=== PATIENT | female | born 1935 | race Caucasian/White ===

== ENCOUNTER 2016-12-04 01:31 | Emergency (ER) | payer OTHER ==
[~2016-12-04] VITALS: Ht 160 cm; Wt 73.9 kg
[2016-12-04] MEDS ORDERED: NALBUPHINE HCL 10 MG/1ml INJECTION IV ONE (02:00)
[2016-12-04] MEDS ORDERED: ALPRAZolam 0.5 MG TAB PO ONE (04:00)
[2016-12-04 06:03] LABS: Basophils # (auto) 0.1 uL; Basophils % (auto) 0.4 % (0.0-2.0); Eosinophils # (auto) 0.2 uL; Eosinophils % (auto) 1.8 % (0.0-7.0); Hematocrit 48.6 % (36.0-46.0); Hemoglobin 16.2 g/dL (12.2-16.2); Lymphocytes # (auto) 2.5 uL; Lymphocytes % (auto) 21.1 % (10.0-50.0); Mean Corpuscular Hemoglobin 30.9 pg (28.0-32.0); Mean Corpuscular Hgb Conc. 33.4 g/dL (32.0-36.0); Mean Corpuscular Volume 92.5 fL (80.0-100.0); Mean Platelet Volume 10.9 fL (7.4-10.4); Monocytes % (auto) 8.6 % (0.0-12.0); Neutrophils # (auto) 8.2 uL; Neutrophils % (auto) 68.1 % (37.0-80.0); Platelet Count (auto) 200 10^3/uL (140-450); Red Cell Distribution Width 14.3 % (11.6-16.0); SUSPECT VIEW TRANSMISSION
[2016-12-04 06:20] LABS: INR 1.02 (0.9-1.15); Partial Thromboplastin Time 26.4 sec (22.64-33.71)
[2016-12-04 06:23] LABS: Albumin 3.2 g/dL (3.4-5.0); BUN/Creatinine Ratio 10.3; Calcium 8.5 mg/dL (8.5-10.1); Potassium 3.2 mmol/L (3.5-5.1)
[2016-12-04 06:26] LABS: Bilirubin, Total 0.6 mg/dL (0.2-1.0); Total Protein 6.6 g/dL (6.4-8.2)
[2016-12-04 07:20] VITALS: BP 178/90
[2016-12-04 07:53] LABS: Urine Bilirubin Negative (Negative); Urine Blood Negative /uL (Negative); Urine Color Yellow (Yellow); Urine Glucose Normal (Normal); Urine Ketone Negative (Negative); Urine Nitrite Negative (Negative); Urine RBC <1 /hpf (0 - 4); Urine Squamous Epithelial Cell FEW /hpf (<5); Urine Urobilinogen Normal (Negative)
== END 2016-12-04 07:27 | disposition short-term general hospital (02) ==
LOC: EDBD 01:31 → ER 01:38
DX: S12.100A Unspecified displaced fracture of second cervical vertebra, initial encounter for closed fracture (principal); M19.90 Unspecified osteoarthritis, unspecified site; E11.9 Type 2 diabetes mellitus without complications; I10 Essential (primary) hypertension; G89.4 Chronic pain syndrome; Z88.0 Allergy status to penicillin; Z85.3 Personal history of malignant neoplasm of breast; W19.XXXA Unspecified fall, initial encounter; Y93.89 Activity, other specified; Y99.8 Other external cause status; Y92.099 Unspecified place in other non-institutional residence as the place of occurrence of the external cause
CPT/HCPCS: 36415; 51702; 70450; 72125; 72170; 73030; 80053; 81001; 85025; 85610; 85730; 94761; 96374; 99285; J2300

== ENCOUNTER 2019-12-29 07:46 | Emergency (ER) | payer OTHER ==
[~2019-12-29] VITALS: Ht 167.6 cm; Wt 77.1 kg
[2019-12-29 09:09] LABS: Basophils # (auto) 0.1 10 ^3/uL (0-0.2); Basophils % (auto) 1.1 % (0.0-2.0); Eosinophils # (auto) 0.3 10 ^3/uL (0-0.8); Eosinophils % (auto) 2.2 % (0.0-7.0); Hematocrit 39.6 % (36.0-46.0); Hemoglobin 12.7 g/dL (12.2-16.2); Lymphocytes # (auto) 2.3 10 ^3/uL (0.4-5.4); Lymphocytes % (auto) 17.2 % (10.0-50.0); Mean Corpuscular Hemoglobin 30.7 pg (28.0-32.0); Mean Corpuscular Hgb Conc. 32.1 g/dL (32.0-36.0); Mean Corpuscular Volume 95.7 fL (80.0-100.0); Monocytes # (auto) 1.1 10 ^3/uL (0-1.3); Monocytes % (auto) 8.7 % (0.0-12.0); Neutrophils # (auto) 9.4 10 ^3/uL (1.6-8.6); Neutrophils % (auto) 70.8 % (37.0-80.0); Platelet Count (auto) 259 10^3/uL (140-450); Red Blood Cells 4.14 10^6/uL (4.0-5.20); Red Cell Distribution Width 14.6 % (11.8-14.3); White Blood Cell 13.2 10^3/uL (4.4-10.8)
[2019-12-29 09:15] LABS: Urine Amorphous Crystal FEW /hpf (None Seen); Urine Bacteria NONE SEEN /hpf (None Seen); Urine Blood Negative /uL (Negative); Urine Specific Gravity 1.021 (1.001-1.035); Urine WBC 12 /hpf (0 - 5)
[2019-12-29 09:17] LABS: INR 0.96 (0.9-1.15); Partial Thromboplastin Time 24.3 sec (23.64-32.05)
[2019-12-29 09:40] LABS: Albumin 2.2 g/dL (3.4-5.0); Anion Gap 3 (5-15); Blood Urea Nitrogen 35 mg/dL (7-18); Calcium 8.5 mg/dL (8.5-10.1); Carbon Dioxide 30 mmol/L (21-32); Chloride 106 mmol/L (98-107); Glucose 105 mg/dL (74-106); Potassium 4.4 mmol/L (3.5-5.1); Sodium 139 mmol/L (136-145)
[2019-12-29 09:46] LABS: Alanine Aminotransferase 13 U/L (13-56); Alkaline Phosphatase 62 U/L (45-117); Aspartate Aminotransferase 19 U/L (15-37); BUN/Creatinine Ratio 67.3; Bilirubin, Total 0.5 mg/dL (0.2-1.0); GFR African American 145 mL/min; GFR Non-African American 120 mL/min; Total Protein 5.9 g/dL (6.4-8.2)
[2019-12-29 12:00] VITALS: BP 112/78
== END 2019-12-29 12:16 | disposition home or self-care (01) ==
LOC: ER 07:46 → EDBD 07:46 → ER 12:16
DX: K52.9 Noninfective gastroenteritis and colitis, unspecified (principal); K59.00 Constipation, unspecified; E43 Unspecified severe protein-calorie malnutrition; E11.9 Type 2 diabetes mellitus without complications; R51 Headache; I10 Essential (primary) hypertension; Z68.27 Body mass index [BMI] 27.0-27.9, adult; Z88.0 Allergy status to penicillin
CPT/HCPCS: 36415; 70450; 71250; 74176; 80053; 81001; 83880; 84484; 85025; 85610; 85730; 93005

== ENCOUNTER 2020-03-11 12:18 | Inpatient (IN) | payer OTHER ==
[~2020-03-11] VITALS: Ht 172.7 cm; Wt 70.9 kg
[2020-03-11] MEDS ORDERED: SODIUM CHLORIDE 0.9% 1,000 ML IV ONE (12:27)
[2020-03-11 13:18] LABS: Basophils # (auto) 0.1 10 ^3/uL (0-0.2); Basophils % (auto) 0.8 % (0.0-2.0); Eosinophils # (auto) 0.2 10 ^3/uL (0-0.8); Eosinophils % (auto) 2.3 % (0.0-7.0); Hematocrit 43.2 % (36.0-46.0); Hemoglobin 13.8 g/dL (12.2-16.2); Lymphocytes % (auto) 32.7 % (10.0-50.0); Mean Corpuscular Hemoglobin 29.7 pg (28.0-32.0); Mean Corpuscular Hgb Conc. 32.1 g/dL (32.0-36.0); Mean Corpuscular Volume 92.7 fL (80.0-100.0); Monocytes # (auto) 0.8 10 ^3/uL (0-1.3); Monocytes % (auto) 8.3 % (0.0-12.0); Neutrophils # (auto) 5.1 10 ^3/uL (1.6-8.6); Neutrophils % (auto) 55.9 % (37.0-80.0); Platelet Count (auto) 249 10^3/uL (140-450); Red Blood Cells 4.66 10^6/uL (4.0-5.20); Red Cell Distribution Width 16.2 % (11.8-14.3); White Blood Cell 9.1 10^3/uL (4.4-10.8)
[2020-03-11 13:33] LABS: Albumin 2.4 g/dL (3.4-5.0); Anion Gap 6 (5-15); Carbon Dioxide 27 mmol/L (21-32); Chloride 107 mmol/L (98-107); Glucose 89 mg/dL (74-106); Potassium 3.9 mmol/L (3.5-5.1); Sodium 140 mmol/L (136-145)
[2020-03-11 13:40] LABS: Alanine Aminotransferase 9 U/L (13-56); Alkaline Phosphatase 64 U/L (45-117); Aspartate Aminotransferase 14 U/L (15-37); Bilirubin, Total 0.5 mg/dL (0.2-1.0); Total Protein 6.2 g/dL (6.4-8.2)
[2020-03-11 13:41] LABS: CRP High Sensitivity 0.281 mg/dL (< 0.3)
[2020-03-11 13:51] LABS: Urine Amorphous Crystal FEW /hpf (None Seen); Urine Bacteria FEW /hpf (None Seen); Urine Blood Negative /uL (Negative); Urine Hyaline Cast FEW /lpf (0 - 2); Urine Specific Gravity 1.013 (1.001-1.035); Urine WBC 44 /hpf (0 - 5)
[2020-03-11] MEDS ORDERED: cefTRIAXone 1GM/50ML D5W 50 ML IV ONE (14:00)
[2020-03-11 14:32] LABS: INR 0.97 (0.9-1.15)
[2020-03-11 14:50] LABS: BUN/Creatinine Ratio 22.4; Blood Urea Nitrogen 11 mg/dL (7-18); GFR African American 155 mL/min; GFR Non-African American 128 mL/min
[2020-03-11] MEDS ORDERED: FUROSEMIDE 20 MG/2 ML VIAL IV ONE (16:30)
[2020-03-11] MEDS ORDERED: MORPHINE SULF INJ 2 MG/ML SYRINGE 1ML IV PRN (16:45)
[2020-03-11] MEDS ORDERED: PANTOPRAZOLE 40 MG/10 ML VIAL INJ IV ONE (16:45)
[2020-03-11] MEDS ORDERED: ACETAMINOPHEN 500 MG TAB PO PRN ×2 (16:45)
[2020-03-11] MEDS ORDERED: NITROGLYCERIN 0.4 MG SL TAB SL PRN (16:45)
[2020-03-11] MEDS ORDERED: LACTULOSE 20Gm/30ML SOLN PO PRN (16:45)
[2020-03-11] MEDS ORDERED: ONDANSETRON HCL 4 MG/2 ML VIAL IV PRN (16:45)
[2020-03-11] MEDS: levoFLOXacin 500MG 100 ML IV SCH (17:27)
[2020-03-11 18:01] LABS: Amylase 11 U/L (25-115); Lipase 34 U/L (73-393)
[2020-03-11 20:12] LABS: Hematocrit 42.1 % (36.0-46.0); Hemoglobin 13.5 g/dL (12.2-16.2)
[2020-03-11] MEDS ORDERED: PANTOPRAZOLE 40 MG TAB PO SCH (22:00)
[2020-03-11] MEDS ORDERED: BUDESONIDE (INHALATION) 180 MCG IH IN SCH (22:00)
[2020-03-11] MEDS ORDERED: ALBUTEROL SULF HFA 90MCG INH 200DOSE IN SCH (22:00)
--- NOTE | 2020-03-12 00:15 | NUR ---
MS admit from ER ASHWINI HARRINGTON admitted to tele/MS. Patient oriented to Dea Garza, RN, primary RN, room 274, bed A. Patient weighed by bedscale and encouraged to call if they need something. All questions and concerns addressed, patient verbalized understanding. Bed locked, in lowest position, call light within reach, side rails up x2. Will continue to monitor Q1hr and PRN
[2020-03-12] MEDS: CARVEDILOL 3.125 MG TAB PO SCH ×3 (00:49→21:44)
--- NOTE | 2020-03-12 00:52 | NUR ---
Hospitalist paged Pt unable to swallow meds.
--- NOTE | 2020-03-12 01:20 | NUR ---
Call back from hospitalist New orders received.
[2020-03-12 01:26] LABS: Hematocrit 41.4 % (36.0-46.0); Hemoglobin 13.4 g/dL (12.2-16.2)
[2020-03-12] MEDS ORDERED: DEXTROSE (50%) 50ML SYRG IV PRN (01:30)
[2020-03-12 05:00] VITALS: BP 119/68
--- NOTE | 2020-03-12 05:54 | NUR ---
Wound photo taken Abrasion to right elbow. Wound consult made
[2020-03-12] MEDS: ACCU-CHEK COMFORT CURVE STRIP VI SCH ×4 (06:15→21:44)
[2020-03-12] MEDS: InsuLIN REG 1unit/0.01ml Soln (100units/ml) SC SCH ×4 (06:15→21:44)
[2020-03-12 06:39] LABS: Basophils # (auto) 0.1 10 ^3/uL (0-0.2); Basophils % (auto) 0.7 % (0.0-2.0); Eosinophils # (auto) 0.2 10 ^3/uL (0-0.8); Eosinophils % (auto) 1.9 % (0.0-7.0); Hematocrit 40.2 % (36.0-46.0); Hemoglobin 13.3 g/dL (12.2-16.2); Lymphocytes % (auto) 21.8 % (10.0-50.0); Mean Corpuscular Hemoglobin 30.5 pg (28.0-32.0); Mean Corpuscular Volume 92.3 fL (80.0-100.0); Monocytes % (auto) 11.4 % (0.0-12.0); Neutrophils # (auto) 5.8 10 ^3/uL (1.6-8.6); Neutrophils % (auto) 64.2 % (37.0-80.0); Platelet Count (auto) 217 10^3/uL (140-450); Red Blood Cells 4.36 10^6/uL (4.0-5.20); Red Cell Distribution Width 15.9 % (11.8-14.3); White Blood Cell 9.1 10^3/uL (4.4-10.8)
[2020-03-12 06:51] LABS: Calcium 8.7 mg/dL (8.5-10.1); Potassium 3.3 mmol/L (3.5-5.1)
[2020-03-12 06:57] LABS: Albumin 2.1 g/dL (3.4-5.0); BUN/Creatinine Ratio 24.4; Bilirubin, Total 0.6 mg/dL (0.2-1.0); Total Protein 5.6 g/dL (6.4-8.2)
[2020-03-12] MEDS ORDERED: ACCU-CHEK COMFORT CURVE STRIP VI SCH (07:00)
--- NOTE | 2020-03-12 08:00 | NUR ---
Morning note Patient resting in bed with eyes closed; respirations even and unlabored, no distress noted. Instructed patient on POC, fall precautions and to call for assistance as needed. Patient verbalized understanding. Fall precautions in place with call light within reach.
--- NOTE | 2020-03-12 08:00 | NUR ---
RE: Intervention Patient reports she is bedbound and unable to sit in a chair. Education provided. Patient verbalized understanding. Addendum: 03/12/20 at 1018 by Janneth Brown RN Amended: Links added.
[2020-03-12 09:00] VITALS: BP 132/74
[2020-03-12] MEDS ORDERED: POTASSIUM CHLORIDE 40 MEQ, LIDOCAINE 1% (LOCAL ANESTH.) 4 ML in SODIUM CHL 0.9% 100 ML IV ONE (09:30)
--- NOTE | 2020-03-12 09:30 | NUR ---
was at bedside - Dr. Syed
--- NOTE | 2020-03-12 09:40 | NUR ---
Telephone consent obtained from patient's son, Mamie. Witnessed by second RN.
[2020-03-12] MEDS ORDERED: ZINC SULFATE 220mg CAP or TAB PO SCH (10:00)
[2020-03-12] MEDS ORDERED: ASCORBIC ACID 1,000 MG TAB PO SCH (10:00)
[2020-03-12] MEDS ORDERED: CHOLECALCIFEROL (VITD3) 2,000 UNIT CAP PO SCH (10:00)
[2020-03-12] MEDS ORDERED: SODIUM CHLORIDE LOCK 10 ML ONE (10:09)
--- NOTE | 2020-03-12 10:09 | NUR ---
Patient transferred to pre-op via hospital bed. IV patent with no infiltration or leaking noted. Telephone consent obtained from patient's son, Mamie. Consents in patient's hard chart.
[2020-03-12] MEDS: fentaNYL CITRATE 100 MCG/2 ML VL ONE ×2 (10:24→10:27)
[2020-03-12] MEDS: MIDAZOLAM HCL 5 MG/ML-1ML VIAL ONE ×2 (10:24→10:27)
--- NOTE | 2020-03-12 10:35 | NUR ---
RE: Intervention Patient off unit at scheduled procedure. Addendum: 03/12/20 at 1210 by Janneth Brown RN Amended: Links added.
--- NOTE | 2020-03-12 11:24 | NUR ---
Patient returned to unit via hospital bed Respirations even and unlabored on 1 lpm NC, no distress noted. Patient is drowsy; opens eyes to name. Fall precautions in place with call light within reach, bed alarm on for safety.
--- NOTE | 2020-03-12 11:25 | NUR ---
WOUND CARE NOTE: Wound care in to see patient per wound care request regarding "Rt elbow abrasion" that are noted present on admission. Bedside nurse took photograph of patient's skin issue upon admission for reference. Patient is 84 years old female with admitting diagnosis of Heart Failure, Pna. Patient is resting in bed in Rm. 274A. Patient is awake, alert and oriented. Patient appears to be in mild pain as she just came back to floor from procedure. She need assistance in turning and repositioning and her Alejandro score is 17. Patient's Rt elbow noted with 0.5x0.5cm scabbed abrasion, area is clean and dry, left open to air however her bilateral arms noted with bright redness with multi ecchymosis. her L elbow noted wit blanchable redness, applied Z Guard cream and covered with protective Opti foam gentle dressing. NO other wound noted,no pressure injury noted. Bed in low position, call osorio within reach, bed alarm on. RECOMMENDATION: Nursing to continue with BID/PRN cleaning and application of Z Guard cream to sacral, buttocks and L elbow blanchable redness as preventative, frequent turning and repositioning schedule as condition permits, redistribute pressure points with pillows, elevate heels on pillows, continue monitoring by wound care while patient is hospitalized. Addendum: 03/12/20 at 1522 by Cristina Kauffman RN Amended: Links added.
--- NOTE | 2020-03-12 12:00 | NUR ---
RE: Intervention Patient s/p EGD. Unsafe for patient to get OOB to chair. Addendum: 03/12/20 at 1210 by Janneth Brown RN Amended: Links added.
[2020-03-12] MEDS: levoFLOXacin 500MG 100 ML IV SCH (12:05)
[2020-03-12] MEDS: ENALAPRIL MALEATE 2.5 MG TAB PO SCH (12:05)
[2020-03-12] MEDS: PANTOPRAZOLE 40 MG/10 ML VIAL INJ IV SCH ×2 (12:05→21:42)
--- NOTE | 2020-03-12 12:06 | NUR ---
IV removed/IV started IV removed from the LFA with aseptic technique, catheter technique. Dressing applied. Patient tolerated well, no trauma to site. 22g IV started to the RFA with aseptic technique. IV secured and IV education provided. Patient verbalized understanding.
[2020-03-12 12:47] VITALS: BP 111/58
--- NOTE | 2020-03-12 15:02 | NUR ---
Nutrition Assessment Notes Please refer to link for full assessment notes. Est Energy needs: 1486-2772 kcals (20-23 kcal/kgBW) Est Protein needs: 98-112 gms/day (1.2-1.37 gm/kgBW) d/t pt heart failure Will continue to monitor and reassess prn. Addendum: 03/12/20 at [address] Amended: Links added.
--- NOTE | 2020-03-12 15:48 | NUR ---
Patient's called for an update Password obtained. Update provided. Mamie, patient's , reported to this RN that the patient has been bedbound since experiencing a fall approximately 3 months ago and that patient has been in and out of [place] as well as [place] with no improvement in infection or physical abilities. Patient's reports prior to the fall patient was ambulating with a walker and performed majority of her ADL's without assistance. Patient's reports patient has not had a chronic indwelling barriga catheter although family has been requesting one.
--- NOTE | 2020-03-12 16:17 | NUR ---
SWALLOW EVALUATED. PATIENT HAS NATURAL LOWER TEETH. NO DENTITION ON TOP. PATIENT REFUSED EVALUATION AT FIRST BUT NURSING ASSISTED AND PATIENT WAS ABLE TO TOLERATE PUREE DIET TEXTURE WITH THIN LIQUIDS WITH NO OVERT SIGNS OR SYMPTOMS OF ASPIRATION. PATIENT WILL NEED MAX ENCOURAGEMENT TO EAT. NURSING NOTIFIED.
--- NOTE | 2020-03-12 16:35 | NUR ---
Urine specimen collected & sent to lab per MD order Urine specimen collected with aseptic technique from Slade catheter.
[2020-03-12 17:00] VITALS: BP 139/75
--- NOTE | 2020-03-12 17:18 | NUR ---
Updated RE: pulse ox result Dr. Lane verbalized understanding. placing orders. Addendum: 03/12/20 at 1720 by Janneth Brown RN please disregard note.
--- NOTE | 2020-03-12 17:47 | NUR ---
Patient refused accu-check Patient stated "I don't want to get poked. You guys just checked me. I haven't ate anything. I'm always fine anyways." Education provided to the patient. Patient verbalized understanding.
--- NOTE | 2020-03-12 18:30 | NUR ---
Patient refused dinner meal tray Patient stated "I just don't feel like eating. I don't want to." Nutritional education provided to the patient. Patient verbalized understanding.
--- NOTE | 2020-03-12 18:45 | NUR ---
Closing note Patient resting in bed with even and unlabored respirations on room air, no distress noted. Fall precautions in place with call light within reach; bed alarm on for safety.
--- NOTE | 2020-03-12 19:16 | NUR ---
Care endorsed to ESEQUIEL Malin.
--- NOTE | 2020-03-12 20:00 | NUR ---
Opening Shift Note Assumed care of patient. Awake, alert and oriented x3. No S/S of distress/SOB or pain. Pt is on room air with even and unlabored respirations. Slade catheter is off the floor, patent and draining cloudy, dark yellow urine. Instructed on POC and to call for assist PRN. Bed locked, in lowest position, call light within reach, side rails up x2, bed alarm on for safety. Will continue to monitor for changes Q1hr and PRN.
[2020-03-12] MEDS: MORPHINE SULF INJ 2 MG/ML SYRINGE 1ML IV PRN (20:26)
--- NOTE | 2020-03-12 20:36 | NUR ---
Pt ate several bites of dinner. Tolerated well.
[2020-03-12 22:00] VITALS: BP 125/75
[2020-03-13 05:00] VITALS: BP 127/61
[2020-03-13] MEDS: InsuLIN REG 1unit/0.01ml Soln (100units/ml) SC SCH ×4 (06:22→21:10)
[2020-03-13] MEDS: ACCU-CHEK COMFORT CURVE STRIP VI SCH ×4 (06:22→21:11)
[2020-03-13] MEDS: MORPHINE SULF INJ 2 MG/ML SYRINGE 1ML IV PRN ×2 (06:23→17:07)
--- NOTE | 2020-03-13 07:36 | NUR ---
OPENING SHIFT NOTE: PATIENT RESTING IN BED, A/OX3 UNABLE TO RECALL SITUATION/TIME, MILDLY FORGETFUL. PATIENT NOTED TO HAVE BILATERAL UPPER ARM TREMORS. THIS RN RE-ORIENTED PATIENT AND UPDATED ON PLAN OF CARE. RESPIRATIONS EVEN AND UNLABORED. RICHEY HUNG BELOW BLADDER, FREE OF KINKS. CALL LIGHT WITHIN REACH, BED ALARM AND FALL PRECAUTIONS IN PLACE. WILL CONTINUE TO MONITOR.
--- NOTE | 2020-03-13 08:29 | NUR ---
REFUSAL OF BREAKFAST AND PERSONAL HYGIENE: PATIENT REFUSED MOST BREAKFAST. PATIENT STATED, "IF I EAT TOO MUCH I WILL GET SICK." PATIENT NOTED TO HAVE FACIAL SKIN CRUSTING AND THICK ORAL MUCOUS AND BUILD UP. THIS RN ASKED IF WE COULD ASSIST WITH CLEANING FACE AND MOUTH FOR BETTER COMFORT, TOWELS WARMED AND MOIST, PATIENT WITHDREW AND BECAME UPSET. THIS RN ATTEMPTED TO EDUCATED AND PERFORM CARE FOR PATIENT, BUT SHE REFUSED. WILL CONTINUE TO MONITOR.
[2020-03-13 09:00] VITALS: BP 111/71
--- NOTE | 2020-03-13 09:00 | NUR ---
PATIENT REFUSED PT AT THIS TIME.
[2020-03-13] MEDS: LORazepam 2MG/ML-1ML VIAL IV PRN ×2 (09:31→18:15)
--- NOTE | 2020-03-13 09:33 | NUR ---
MD Eddie LENTZ.
[2020-03-13] MEDS: ENALAPRIL MALEATE 2.5 MG TAB PO SCH (10:00)
[2020-03-13] MEDS: CARVEDILOL 3.125 MG TAB PO SCH ×2 (10:00→21:10)
[2020-03-13] MEDS: PANTOPRAZOLE 40 MG/10 ML VIAL INJ IV SCH ×2 (10:23→21:09)
[2020-03-13] MEDS: levoFLOXacin 500MG 100 ML IV SCH (10:23)
--- NOTE | 2020-03-13 10:30 | NUR ---
IV: IV IN RIGHT FA DISCONTINUED. NEW IV PLACED ALSO IN RIGHT FA, 22G. MIDLINE ORDER PLACED. ON-CALL MIDLINE PICC LINE RN CALLED/MADE AWARE VIA HOUSE SUP.
--- NOTE | 2020-03-13 11:28 | NUR ---
MD SABILLON ROUNDING.
[2020-03-13 13:00] VITALS: BP 127/78
[2020-03-13] MEDS: Ensure Enlive Strawberry 8oz Bottle PO SCH ×2 (15:16→17:06)
[2020-03-13] MEDS: KETOROLAC TROMETH 30 MG/ML 1ML VIAL IV PRN (15:17)
--- NOTE | 2020-03-13 15:40 | NUR ---
CALL FROM FAMILY: PER , PATIENT ABLE TO STAND A MONTH AGO, "DOES RECEIVE A PREDNISONE SHOT IN THE KNEE EVERY OTHER MONTH AND IS DUE FOR ONE, THAT WOULD HELP HER STAND AND DO PHYSICAL THERAPY."
[2020-03-13 17:00] VITALS: BP 115/72
--- NOTE | 2020-03-13 17:59 | NUR ---
PAIN RE-ASSESSMENT: PATIENT RESTLESS IN BED, FACIAL GRIMACING. PAIN STILL PERSISTENT DESPITE MORPHINE, MAY BE ANXIETY RELATED, PATIENT C/O MANY DIFFERENT BODY LOCATIONS HURTING. THIS RN ATTEMPTING TO EDUCATE PATIENT AND ASSESS DIFFERENT COMFORTABLE POSITIONS. WILL ADMINISTER ANXIETY MEDICATION FOR S/S.
--- NOTE | 2020-03-13 18:46 | NUR ---
CARE ENDORSED TO NOC RN.
--- NOTE | 2020-03-13 19:15 | NUR ---
assumed care, pt. awake, with tremors on upper ext. and lower ext. noted, repositioned pt. no c/o pain, no sob.
[2020-03-13] MEDS: GABAPENTIN 100 MG CAP PO SCH (21:10)
[2020-03-13 22:00] VITALS: BP 147/72
[2020-03-14 05:00] VITALS: BP 116/77
[2020-03-14] MEDS: InsuLIN REG 1unit/0.01ml Soln (100units/ml) SC SCH ×4 (06:10→21:22)
[2020-03-14] MEDS: ACCU-CHEK COMFORT CURVE STRIP VI SCH ×4 (06:10→21:23)
--- NOTE | 2020-03-14 07:39 | NUR ---
Opening Note Assumed pt care from NOC RN. Pt is a/ox3-4; mild periods of confusions noted, pt is able to answer questions. Pt is currently sitting upright in bed with no complaints at this time. Slade is present, draining to gravity and free of kinks. Discussed POC with pt; pt verbalized understanding. Safety measures maintained with call light within reach, bed in lowest position and side rails up. Will continue to monitor.
[2020-03-14] MEDS: Ensure Enlive Strawberry 8oz Bottle PO SCH ×2 (08:00→18:00)
[2020-03-14] MEDS: GABAPENTIN 100 MG CAP PO SCH ×2 (08:46→21:22)
[2020-03-14] MEDS: MORPHINE SULF INJ 2 MG/ML SYRINGE 1ML IV PRN ×2 (08:46→18:23)
[2020-03-14] MEDS: levoFLOXacin 500MG 100 ML IV SCH (08:46)
[2020-03-14] MEDS: CARVEDILOL 3.125 MG TAB PO SCH ×2 (08:47→21:22)
[2020-03-14] MEDS: PANTOPRAZOLE 40 MG/10 ML VIAL INJ IV SCH ×2 (08:47→21:21)
[2020-03-14] MEDS: ENALAPRIL MALEATE 2.5 MG TAB PO SCH (08:48)
[2020-03-14 09:00] VITALS: BP 119/87
--- NOTE | 2020-03-14 09:07 | NUR ---
Dr Travis at Bedside MD to see pt. discussed POC. New orders for additional scans. Will implement and continue to monitor.
[2020-03-14] MEDS ORDERED: GABAPENTIN 100 MG CAP PO SCH (10:00)
[2020-03-14] MEDS: KETOROLAC TROMETH 30 MG/ML 1ML VIAL IV PRN (11:09)
--- NOTE | 2020-03-14 11:15 | NUR ---
Pt refused PT eval stating she is too exhausted and too weak to get up. Pt was educated on importance of functional mobility to increase strength and decrease adverse risks of bedrest. Pt verbalized understanding but still refusing to participate. Will attempt again tomorrow.
--- NOTE | 2020-03-14 11:21 | NUR ---
Dr Syed at Bedside MD to see pt. Requests that we encourage pt more to consume ensure. Will implement and continue to monitor.
--- NOTE | 2020-03-14 11:52 | NUR ---
TURN Q2 ATTEMPTED TO TURN PATIENT, PATIENT REFUSED. PROVIDED EDUCATION ON PURPOSE OF TURNING. PATIENT STILL REFUSED. PATIENT STATES "I MOVE ENOUGH" Signed: 03/14/20 at 1153 by GEORGE MART SN <Co-Signature Required> Co-Signed: 03/14/20 at 1153 by DOMINIC SUAREZ RN RN
--- NOTE | 2020-03-14 12:15 | NUR ---
Nutrition Followup Note Wt 71.5kg Pt was sleeping at time of rounds with no family at bedside. Pt with pureed diet order. Pt with inadequate oral intake and poor appetite aeb pt with 25% po intake per RN note. Pt with Ensure Enlive BID ordered per MD, pt refused / per RN note. Continue to encourage pt to consume meals and consume oral supplements. Est Energy needs: 2409-7212 kcals (20-23 kcal/kgBW) Est Protein needs: 98-112 gms/day (1.2-1.37 gm/kgBW) d/t pt heart failure Will continue to monitor and reassess prn. Labs: Creat 0.41L, Alb 2.1L BM: pt with no BM recorded per RN note Skin: BS 18 mod risk, full details in customer care assistant note PES: Inadequate oral intake r/t current medical condition aeb pt with 25% po intake and refusal of oral supplements per RN note Comments: Will continue to monitor PO intake, skin status, pertinent labs and weight trends. 1) Consider Cardiac 2gmNA,lowfat,lowchol diet when medically feasible and as tolerated 2) Continue current plan of care Expected Outcomes/Goals: Pt appetite to meet at least 75% PO intake f/u 3-5 days
[2020-03-14 13:00] VITALS: BP 117/71
--- NOTE | 2020-03-14 14:54 | NUR ---
Pt Off Unit Pt taken off unit to CT via stretcher. Addendum: 03/14/20 at 1514 by DOMINIC SUAREZ RN RN Pt back on unit.
[2020-03-14] MEDS: LORazepam 2MG/ML-1ML VIAL IV PRN (16:34)
[2020-03-14 17:01] VITALS: BP 149/79
--- NOTE | 2020-03-14 19:15 | NUR ---
assumed care, pt. awake, weak, no c/o pain, repositioned pt. no sob.
[2020-03-14 22:00] VITALS: BP 148/87
[2020-03-15 05:00] VITALS: BP_SYST 112
[2020-03-15] MEDS: ACCU-CHEK COMFORT CURVE STRIP VI SCH ×4 (06:03→21:27)
[2020-03-15] MEDS: InsuLIN REG 1unit/0.01ml Soln (100units/ml) SC SCH ×4 (06:03→21:49)
--- NOTE | 2020-03-15 07:30 | NUR ---
Opening Shift Note Assumed patient care from NOC RN. Patient currently sitting up in bed, no signs of distress, respirations even and unlabored, will continue to monitor.
[2020-03-15] MEDS: Ensure Enlive Strawberry 8oz Bottle PO SCH ×2 (08:01→17:27)
[2020-03-15] MEDS: MORPHINE SULF INJ 2 MG/ML SYRINGE 1ML IV PRN ×2 (08:01→12:41)
[2020-03-15 09:00] VITALS: BP 113/73
[2020-03-15] MEDS: ENALAPRIL MALEATE 2.5 MG TAB PO SCH (10:00)
[2020-03-15] MEDS: PANTOPRAZOLE 40 MG/10 ML VIAL INJ IV SCH ×2 (10:26→21:26)
[2020-03-15] MEDS: GABAPENTIN 100 MG CAP PO SCH ×2 (10:26→21:27)
[2020-03-15] MEDS: levoFLOXacin 500MG 100 ML IV SCH (10:26)
--- NOTE | 2020-03-15 10:30 | NUR ---
at Bedside Dr. Travis at bedside discussing plan of care with patient.
[2020-03-15] MEDS: CARVEDILOL 3.125 MG TAB PO SCH ×2 (10:31→21:27)
[2020-03-15 14:00] VITALS: BP 124/71
--- NOTE | 2020-03-15 16:00 | NUR ---
Family Spoke with patient's , password confirmed. Family requesting to speak with Dr. Travis regarding patient's plan of care.
[2020-03-15 17:00] VITALS: BP 122/74
--- NOTE | 2020-03-15 18:00 | NUR ---
Paged Paged hospitalist regarding tele strip.
--- NOTE | 2020-03-15 18:14 | NUR ---
MD Called Received call from Dr. Ayala. notified of run of Afib, current heart rate and patient status. New orders received.
[2020-03-15] MEDS ORDERED: METOPROLOL TARTRATE 1MG/1ML-5ML VIAL IV PRN (19:00)
[2020-03-15] MEDS: LORazepam 2MG/ML-1ML VIAL IV PRN (21:27)
[2020-03-15] MEDS: KETOROLAC TROMETH 30 MG/ML 1ML VIAL IV PRN (21:27)
[2020-03-15 22:08] VITALS: BP 144/68
[2020-03-16 05:00] VITALS: BP 135/77
[2020-03-16] MEDS: InsuLIN REG 1unit/0.01ml Soln (100units/ml) SC SCH ×2 (07:00→11:21)
[2020-03-16] MEDS: Ensure Enlive Strawberry 8oz Bottle PO SCH (07:43)
[2020-03-16] MEDS: ACCU-CHEK COMFORT CURVE STRIP VI SCH ×2 (07:43→11:20)
[2020-03-16 10:01] VITALS: BP 124/103
[2020-03-16] MEDS: KETOROLAC TROMETH 30 MG/ML 1ML VIAL IV PRN (10:18)
[2020-03-16] MEDS: GABAPENTIN 100 MG CAP PO SCH (10:18)
[2020-03-16] MEDS: levoFLOXacin 500MG 100 ML IV SCH (10:18)
[2020-03-16] MEDS: ENALAPRIL MALEATE 2.5 MG TAB PO SCH (10:19)
[2020-03-16] MEDS: PANTOPRAZOLE 40 MG/10 ML VIAL INJ IV SCH (10:19)
[2020-03-16] MEDS: CARVEDILOL 3.125 MG TAB PO SCH (10:19)
[2020-03-16 13:00] VITALS: BP 139/89
--- NOTE | 2020-03-16 15:58 | NUR ---
assessment Patient is a 84 year old female who is confused. Per patients Mamie prior to admission patient resided with him and functioned with his assistance. Mamie informed me patient was vomiting and increased confusion so she came to ER and was admitted. Patient has a fww and a wheelchair for home use. Patients PCP is Dr Delacruz at the [facility]. I have offered Mamie various discharge options due to recent hospitalization such as private pay caregivers, home health, and placement. Mamie informed me patient to return home on discharge and he would like home health for PT. I have notified Dr Travis. Mamie verbalized understanding and agreed to discharge plan home. Addendum: 03/16/20 at 1604 by Catrina BRAUN Amended: Links added.
--- NOTE | 2020-03-16 16:03 | NUR ---
- RE: D/C Spoke with regarding patient's discharge. He asked about transportation home. He was informed that unless the patient is going to a hospital or longterm, transportation is not provided other than a taxi voucher if the patient has no ride. Patient is unable to stand and walk. PT said she is maximum assist. The said he would try to find transportation as he was concerned that he and his son would not be able to get her from the car to the house once she was home. He later called back and said he found a company to pick her up with a [employer]. He said they would be here around 5:30/6 pm.
[2020-03-16] MEDS ORDERED: KETOROLAC TROMETH 30 MG/ML 1ML VIAL IV PRN (16:20)
[2020-03-16 16:42] VITALS: BP 110/73
--- NOTE | 2020-03-16 17:26 | NUR ---
IV AND RICHEY Removed IV intact, no problems. Removed Richey catheter intact. Urine cloudy yellow with sediment. No problems.
--- NOTE | 2020-03-16 18:43 | NUR ---
Discharge Patient is very confused. Patient unable to sign paperwork. 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 Sent all paperwork and prescriptions with the patient and transportation. Removed IV intact, no problems. Removed Slade catheter intact, no problems. said the patient did not come to the hospital with the Slade. Removed Telemetry box and sent to ICU per hospital protocol. Pictures taken of healing, scabbed skin tear to elbow.
== END 2020-03-16 18:37 | disposition home or self-care (01) | DRG 377 ==
LOC: ER 12:18 → EDBD 12:18 → TELE 12:19 → TELE-WESTW 21:50
PROVIDERS: ADMIT Internal Medicine; ATTEND Family Medicine
PROC: 0DB68ZX Excision of Stomach, Via Natural or Artificial Opening Endoscopic, Diagnostic (ICD-10-PCS; principal; 2020-03-12 10:10)
DX: K29.71 Gastritis, unspecified, with bleeding (principal); J69.0 Pneumonitis due to inhalation of food and vomit; E44.0 Moderate protein-calorie malnutrition; N39.0 Urinary tract infection, site not specified; J91.8 Pleural effusion in other conditions classified elsewhere; R13.10 Dysphagia, unspecified; E66.3 Overweight; I11.0 Hypertensive heart disease with heart failure; E11.9 Type 2 diabetes mellitus without complications; E87.6 Hypokalemia; F03.90 Unspecified dementia, unspecified severity, without behavioral disturbance, psychotic disturbance, mood disturbance, and anxiety; K57.30 Diverticulosis of large intestine without perforation or abscess without bleeding; M54.31 Sciatica, right side; I50.9 Heart failure, unspecified; M54.32 Sciatica, left side; M19.90 Unspecified osteoarthritis, unspecified site; Z20.828 Contact with and (suspected) exposure to other viral communicable diseases; Z85.3 Personal history of malignant neoplasm of breast; Z90.10 Acquired absence of unspecified breast and nipple; Z74.01 Bed confinement status; Z88.0 Allergy status to penicillin; Z90.49 Acquired absence of other specified parts of digestive tract; Z79.899 Other long term (current) drug therapy; Z68.27 Body mass index [BMI] 27.0-27.9, adult
CPT/HCPCS: 36415; 43239; 70450; 71045; 72131; 74176; 80053; 81001; 82150; 82550; 82728; 82962; 83036; 83615; 83690; 83880; 84443; 84484; 85014; 85018; 85025; 85045; 85610; 85652; 85730; 86141; 87040; 87086; 92610; 93005; 93925; 97163; 99291; C9113; G0378; J0696; J1885; J1956; J2001; J2250